=== PATIENT | female | born 1940 | race Caucasian/White ===

== ENCOUNTER 2017-01-06 09:29 | Day surgery (SDC) | payer MEDICARE, OTHER ==
[~2017-01-06] VITALS: Ht 162.6 cm; Wt 92.0 kg
[2017-01-06] VITALS (10 sets, daily range): BP systolic 115–159; BP diastolic 70–94; PULSE 59–76; TEMP 97–97.7
[~2017-01-06 09:29] MED LIST: COUMADIN 5MG5 MG/TAB PO; ICAPS MV1 TAB PO; TOPROL XL 25MG25 MG PO
[2017-01-06] MEDS ORDERED: PRINIVIL10 MG PO (10:05)
[2017-01-06] MEDS ORDERED: TOPROL XL 50MG50 MG PO (10:05)
[2017-01-06] MEDS ORDERED: COUMADIN4 MG PO (10:06)
[2017-01-06 10:37] LABS: HEMATOCRIT 39.7 % (37.0-47.0); HEMOGLOBIN 13.4 g/dl (12.5-16.0); MEAN CELL VOLUME 85 fl (80.0-100.0); MEAN CORPUSCULAR HEMOGLOBIN 29 pg (27.0-31.0); MEAN CORPUSCULAR HGB CONC 34 g/dl (33.0-37.0); PLATELET COUNT 154 K/mm3 (130-400); RED BLOOD COUNT 4.65 M/mm3 (4.10-5.30); REDCELL DISTRIBUTION WIDTH-CV 13.6 % (11.5-14.5)
[2017-01-06 10:41] LABS: INR 1.2 (0.8-3.0); PROTHROMBIN TIME 13.6 SECONDS (9.7-12.8)
[2017-01-06 11:07] LABS: CALCIUM 8.7 mg/dL (8.4-10.2); CREATININE, serum 0.79 mg/dL (0.52-1.25); POTASSIUM 3.8 mmol/L (3.4-5.0)
[2017-01-06] MEDS ORDERED: CEPHALEXIN500 M1 PO (14:34)
== END 2017-01-06 16:42 | disposition home or self-care (01) ==
LOC: COL.CAR 09:29
PROVIDERS: Internal Medicine Cardiovascular Disease
DX: Z45.02 Encounter for adjustment and management of automatic implantable cardiac defibrillator (principal); I42.8 Other cardiomyopathies; I48.0 Paroxysmal atrial fibrillation; Z79.01 Long term (current) use of anticoagulants
CPT/HCPCS: C1882; J0690; J2250; J3010; J7040

== ENCOUNTER 2020-04-18 07:41 | Day surgery (SDC) | payer MEDICARE, OTHER ==
[2020-04-18] VITALS (12 sets, daily range): BP systolic 101–140; BP diastolic 43–94; PULSE 60–83; TEMP 97.3–98.7
[~2020-04-18] VITALS: Ht 160 cm; Wt 77.1 kg
[~2020-04-18 07:41] MED LIST changes: +CEPHALEXIN500 M1 PO; +COUMADIN4 MG PO; +PRINIVIL10 MG PO; +TOPROL XL 50MG50 MG PO
--- NOTE | 2020-04-18 09:15 | NUR ---
SPOKE WITH PATIENT REGARDING HOME MEDS. PATIENT STATES SHE STOPPED WARFARIN ON 04/18/20Thursday. SHE STATES SHE TOOK LOVENOX INJECTIONS DAILY X 4. THE LAST INJECTIONS WAS Thursday04/16/20. PATIENT STATES SHE DOES NOT REMEMBER THE DOSE OF THE LOVENOX.
--- NOTE | 2020-04-18 19:14 | NUR ---
PT VSS POST OP. PT DID SIT IN CHAIR FOR 3+ HOURS. PT IS UP AND WALKING. NO C/O PAIN IN THE ABD. HAS C/O MILD HEADACHE. NO FURTHER CONCERNS.
--- NOTE | 2020-04-18 20:00 | NUR ---
Pt. laying in bed watching TV at this time. Pt. is A&OX3, assessment complete. INT to rt. ac patent. Abd. incisions x4, egdes well approximated with owusu set. Pt. denies pain or other needs, call light within reach.
[2020-04-19 03:44] VITALS: BP 132/62; PULSE 58; TEMP 98.2
--- NOTE | 2020-04-19 07:40 | NUR ---
PT PLEASANT, AOX4, APPEARS DROWSY EVEN THOUGH SHE SLEPT WELL LAST NIGHT, C/O / DULLNESS IN THE HEAD, SAYS HER ABD SITES ARE NOT HURTING, ALL SITES HAVE SLIGHT REDNESS PRESENT, OPEN TO AIR, NO OTHER NEEDS. VITALS TAKEN, MEDS GIVEN, ASSESSMENT PERFORMED. FRESH ICE WATER BROUGHT IN.
[2020-04-19 07:41] VITALS: BP 128/59; PULSE 61; TEMP 98.9
[2020-04-19 11:41] VITALS: BP 110/49; PULSE 59; TEMP 98.6
[2020-04-19] MEDS ORDERED: ULTRAM 50MG TAB50 MG PO (16:31)
--- NOTE | 2020-04-19 17:27 | NUR ---
DISCHARGE EDUCATION PROVIDED, DISCHARGE PAPERWORK SIGNED, IV DISCONTINUED, PT BELONGINGS GATHERED, PT READY TO LEAVE VIA WHEELCHAIR.
--- NOTE | 2020-04-19 17:35 | NUR ---
PT TAKEN OUT VIA WHEELCHAIR WITH OTHER BELONGINGS, NO OTHER NEEDS AT THIS TIME.
== END 2020-04-19 17:35 | disposition home or self-care (01) ==
LOC: MEDICAL 07:41 → SDCO 07:41 → MEDICAL 12:49 → SDCO 04-19 17:35
DX: K80.10 Calculus of gallbladder with chronic cholecystitis without obstruction (principal); I48.91 Unspecified atrial fibrillation; I42.8 Other cardiomyopathies; M19.90 Unspecified osteoarthritis, unspecified site; Z79.01 Long term (current) use of anticoagulants; Z79.82 Long term (current) use of aspirin; Z98.51 Tubal ligation status; Z90.710 Acquired absence of both cervix and uterus; Z95.810 Presence of automatic (implantable) cardiac defibrillator
CPT/HCPCS: OP; J0690; J1100; J1650; J1885; J2405; J2704; J3010; J7030

== ENCOUNTER 2021-01-08 08:32 | Day surgery (SDC) | payer MEDICARE, OTHER ==
[~2021-01-08] VITALS: Ht 160.1 cm; Wt 78.3 kg
[~2021-01-08 08:32] MED LIST changes: +ULTRAM 50MG TAB50 MG PO
[2021-01-08 08:57] VITALS: BP 142/99; PULSE 86; TEMP 98.1
[2021-01-08 09:37] LABS: INR 2.4 (0.8-3.0); PROTHROMBIN TIME 26.8 SECONDS (9.7-12.8)
[2021-01-08 09:38] LABS: HEMATOCRIT 39.5 % (37.0-47.0); HEMOGLOBIN 12.9 g/dl (12.5-16.0); MEAN CELL VOLUME 90 fl (80.0-100.0); MEAN CORPUSCULAR HEMOGLOBIN 29 pg (27.0-31.0); MEAN CORPUSCULAR HGB CONC 33 g/dl (33.0-37.0); MEAN PLATELET VOLUME 10.2 fl (7.4-10.4); PLATELET COUNT 187 K/mm3 (130-400)
[2021-01-08 09:39] LABS: PARTIAL THROMBOPLASTIN TIME 39.5 SECONDS (26.0-37.0)
[2021-01-08 09:40] LABS: CALCIUM 8.8 mg/dL (8.4-10.2); CREATININE, serum 0.72 (0.52-1.25); MAGNESIUM 1.9 mg/dL (1.6-2.3); POTASSIUM 3.7 mmol/L (3.4-5.0)
[2021-01-08 10:24] LABS: THYROID STIMULATING HORMONE 1.64 uIU/mL (0.465-4.680)
[2021-01-08 12:55] VITALS: BP 111/65; PULSE 69
[2021-01-08 13:10] VITALS: BP 121/72; PULSE 69
[2021-01-08 13:25] VITALS: BP 123/68; PULSE 69
[2021-01-08 13:40] VITALS: BP 124/79; PULSE 69
[2021-01-08 13:55] VITALS: BP 117/73; PULSE 69
--- NOTE | 2021-01-08 14:20 | NUR ---
PT READY FOR DEPARTURE AT THIS TIME. PT CARE WAS ASSUMED FROM [facility] AT 1245. PT REMAINED [facility] 15 THROUGHOUT HER RECOVERY.. AT TIME OF DEPARTURE PT IS AWAKE AND ALERT, AMB WITH STEADY GAIT IN HER ROOM. PT REMAINED AV PACED THROUGHOUT HER RECOVERY. WE REVIEWED DC AND FU INSTRUCTIONS, AND IV WAS DC'D WITH CATH INTACT. PT HAS BEEN ABLE TO DRINK WATER WITH NO PROBLEM. PT TO EXIT VIA WHEELCHAIR.
== END 2021-01-08 15:21 | disposition home or self-care (01) ==
LOC: COL.CAR 08:32
PROVIDERS: Internal Medicine Cardiovascular Disease
DX: I48.0 Paroxysmal atrial fibrillation (principal); I11.0 Hypertensive heart disease with heart failure; I42.0 Dilated cardiomyopathy; I50.22 Chronic systolic (congestive) heart failure; Z79.899 Other long term (current) drug therapy; Z79.01 Long term (current) use of anticoagulants
CPT/HCPCS: J2704

== ENCOUNTER 2021-08-09 07:30 | Day surgery (SDC) | payer MEDICARE, OTHER ==
[~2021-08-09] VITALS: Ht 160 cm; Wt 74.5 kg
[2021-08-09] VITALS (9 sets, daily range): BP systolic 108–154; BP diastolic 68–95; PULSE 69–71; TEMP 97.8
[2021-08-09 08:16] LABS: HEMATOCRIT 40.6 % (37.0-47.0); HEMOGLOBIN 13.3 g/dl (12.5-16.0); MEAN CELL VOLUME 89 fl (80.0-100.0); MEAN CORPUSCULAR HEMOGLOBIN 29 pg (27-31); MEAN CORPUSCULAR HGB CONC 33 g/dl (33.0-37.0); MEAN PLATELET VOLUME 9.9 fl (7.4-10.4); PLATELET COUNT 200 K/mm3 (130-400); RED BLOOD COUNT 4.54 M/mm3 (4.10-5.30); REDCELL DISTRIBUTION WIDTH-CV 13.4 % (11.5-14.5)
[2021-08-09 08:25] LABS: INR 1.5 (0.8-3.0); PROTHROMBIN TIME 16.9 SECONDS (9.7-12.8)
[2021-08-09 08:31] LABS: CALCIUM 8.6 mg/dL (8.4-10.2); CREATININE, serum 0.76 mg/dL (0.57-1.11)
--- NOTE | 2021-08-09 08:34 | NUR ---
SEE MERGE FOR ALL MEDICATION ADMINISTRATION TIMES/DOSAGES AND INTRA/POST PROCEDURE SEDATION ASSESSMENTS. PRE PROCEDURE ASSESSMENT COMPLETED IN [facility].
[2021-08-09] MEDS ORDERED: CALCIUM-MAGNES1 EAC1 PO (08:45)
[2021-08-09] MEDS ORDERED: CEPHALEXIN500 M1 PO (11:46)
--- NOTE | 2021-08-09 12:30 | NUR ---
Dressing to left upper chest remains clean, dry and intact. Pt has tolerated PO without issue. DC instructions reviewed with pt and her daughter, both express understanding. She is steady on feet to restroom. INT DC'd with catheter intact. She is assisted out to daughter's car by wheelchair with belongings.
--- NOTE | 2021-08-09 12:35 | NUR ---
Pt assisted out to [place]'s car by wheelchair. She has remained in a paced rhythm since returning to [place] from procedure.
== END 2021-08-09 12:35 | disposition home or self-care (01) ==
LOC: COL.CAR 07:30
PROVIDERS: Internal Medicine Cardiovascular Disease
DX: Z45.02 Encounter for adjustment and management of automatic implantable cardiac defibrillator (principal); I49.5 Sick sinus syndrome; I48.0 Paroxysmal atrial fibrillation; I50.21 Acute systolic (congestive) heart failure; I42.9 Cardiomyopathy, unspecified
CPT/HCPCS: C1882; J0690; J2250; J3010; J7040

== ENCOUNTER 2022-03-19 10:12 | Day surgery (SDC) | payer MEDICARE, OTHER ==
[~2022-03-19] VITALS: Ht 160 cm; Wt 75.0 kg
[~2022-03-19 10:12] MED LIST changes: +CALCIUM-MAGNES1 EAC1 PO; -TOPROL XL 50MG50 MG PO; +TOPROL XL100 MG PO
[2022-03-19] MEDS ORDERED: TYLENOL 325MG325 MG PO (10:30)
[2022-03-19 10:37] VITALS: BP 121/87; PULSE 94; TEMP 98.4
[2022-03-19 11:11] LABS: BASO % 0.6 % (0.0-2.0); EOS # 0.2 K/mm3 (0.0-0.7); EOS % 2.3 % (0.0-4.0); GRAN # 4.1 K/mm3 (1.4-6.5); GRAN % 63.4 % (42.2-75.2); HEMATOCRIT 39.4 % (37.0-47.0); HEMOGLOBIN 12.9 g/dl (12.5-16.0); LYMPH # 1.5 K/mm3 (1.2-3.4); LYMPH % 23.6 % (20.0-51.0); MEAN CELL VOLUME 89 fl (80.0-100.0); MEAN CORPUSCULAR HEMOGLOBIN 29 pg (27-31); MEAN CORPUSCULAR HGB CONC 33 g/dl (33.0-37.0); MONO # 0.6 K/mm3 (0.1-0.6); MONO % 9.8 % (1.7-9.3); PLATELET COUNT 189 K/mm3 (130-400); RED BLOOD COUNT 4.44 M/mm3 (4.10-5.30); REDCELL DISTRIBUTION WIDTH-CV 13.8 % (11.5-14.5)
[2022-03-19 11:23] LABS: INR 2.9 (0.8-3.0); PROTHROMBIN TIME 33.3 SECONDS (9.7-12.8)
[2022-03-19 11:26] LABS: PARTIAL THROMBOPLASTIN TIME 44.4 SECONDS (26.0-37.0)
[2022-03-19 11:30] LABS: CALCIUM 9.1 mg/dL (8.4-10.2); CREATININE, serum 0.82 mg/dL (0.57-1.11); MAGNESIUM 1.9 mg/dL (1.6-2.6); POTASSIUM 4.3 mmol/L (3.5-4.5)
[2022-03-19 11:52] LABS: THYROID STIMULATING HORMONE 1.374 uIU/mL (0.350-4.940)
[2022-03-19] MEDS ORDERED: PACERONE400 MG PO (12:06)
[2022-03-19 12:15] VITALS: BP 110/65; PULSE 70
[2022-03-19 12:30] VITALS: BP 121/74; PULSE 70
[2022-03-19 12:45] VITALS: BP 123/79; PULSE 68
[2022-03-19 13:00] VITALS: BP 119/83; PULSE 90
[2022-03-19 13:15] VITALS: BP 125/81; PULSE 69
--- NOTE | 2022-03-19 13:30 | NUR ---
DC instructions reviewed with pt and daughter. Both express understanding. Pt has tolerated PO without issue. She is steady on feet to restroom. IV DC'd, site wrapped with coban. She is assisted out to daughter's car by wheelchair with belongings.
== END 2022-03-19 13:30 | disposition home or self-care (01) ==
LOC: COL.CAR 10:12
PROVIDERS: Internal Medicine Cardiovascular Disease
DX: I48.91 Unspecified atrial fibrillation (principal)
CPT/HCPCS: J2704